=== PATIENT | male | born 1995 | race Caucasian/White ===

== ENCOUNTER 2018-06-13 11:55 | Emergency (ER) | payer SELFPAY ==
[~2018-06-13] VITALS: Ht 175.3 cm; Wt 59.1 kg
[2018-06-13 12:10] VITALS: BP 111/72; PULSE 58; TEMP 98.1
[2018-06-13] MEDS ORDERED: AMOXICILLIN875 MG PO (14:34)
== END 2018-06-13 14:55 | disposition home or self-care (01) ==
LOC: COL.ER 11:55
DX: J02.9 Acute pharyngitis, unspecified (principal); R51 Headache; J06.9 Acute upper respiratory infection, unspecified